=== PATIENT | female | born 1995 | race Caucasian/White ===

== ENCOUNTER 2019-06-07 10:15 | Emergency (ER) | payer BC ==
[~2019-06-07] VITALS: Ht 177.8 cm; Wt 63.5 kg
[2019-06-07] MEDS ORDERED: CITALOPRAM HBR10 MG PO (10:41)
== END 2019-06-07 16:15 | disposition home or self-care (01) ==
LOC: ER 10:15
DX: K29.60 Other gastritis without bleeding (principal)